=== PATIENT | female | born 1990 | race Caucasian/White ===

== ENCOUNTER 2017-01-04 21:29 | Emergency (ER) | payer OTHER ==
[~2017-01-04] VITALS: Ht 167.6 cm; Wt 158.8 kg
[~2017-01-04 21:29] MED LIST: BACTRIM DS 8001 TAB PO; BENADRYL 50MG C50 MG PO; CIPRO 500MG TA500 MG PO; CLARITIN10 MG PO; DARVOCET-N 1001 EACH PO; HYDROXYZINE50 MG PO; LORTAB 500 MG-71 TAB PO; MEDROL 4MG. DOSE4 MG PO; PERCOCET 325 MG1 TA3 PO; VICODIN 5/500 T1 TAB PO; VOLTAREN75 MG PO
--- NOTE | 2017-01-04 22:03 | Emergency Room Report ---
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 N Clinical Suspician of Infection? N Mental Status: 1 - Regular (Normal Baseline) Sepsis Risk:Low Sepsis Risk Have you (or family members/close friends) recently traveled outside the [place]? N If Yes, where/when: Have you had exposure to infectious disease within the past month? N TB? Other? Specify: Source patient, RN notes reviewed, family, old records Exam Limitations no limitations Comment pt is about 5 weeks and had spotting thursday and had u/s and did ok till tonight with vag bleeding and pain with spont miscarriage of what appeared decidual tissues - Cardiac Chest Pain Chest pain indicative of cardiac No Timing/Duration this evening Severity moderate ALLERGIES Coded Allergies: Penicillins (Mild, 01/04/17) amoxicillin (01/04/17) clavulanic acid (01/04/17) codeine (01/04/17) Home Medications Reported Medications Diphenhydramine Hcl (Benadryl 50MG Cap) 50 MG PO Q4-6H PRN History Medical History General CAD? No Angina: Yes TN: No Hypertension? Yes Hyperlipidemia? No CHF? No DVT? No PE? No COPD? No Asthma? No Anemia? No GERD? No Gastric ulcers? No GI Bleed? No Hernia? No Thyroid Problems? No CVA? No Seizures? No Diabetes? No Home FSBS? No Renal Insuffiency? No End Stage Renal Disease? No UTI? Yes Stones? No BPH? No GB Disease: No Nephritic Syndrome? No Asplenia? No Hepatitis? No Sickle Cell Disease? No Arthritis? No Migraines? No Cataracts? No Glaucoma? No MRSA? No HIV? No TB? No Anxiety? Yes Depression? No Cancer? 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 Respiratory denies cough, denies shortness of breath, denies wheezing Cardiovascular denies chest pain, denies palpitations, denies syncope Gastrointestinal denies abdominal pain, denies diarrhea, denies vomiting Genitourinary see HPI, abnormal vaginal bleeding. denies: frequency, hesitancy, hematuria. Musculoskeletal denies back pain, denies joint pain, denies neck pain Skin denies rash Psychiatric/Neurological denies headache, denies seizure Physical Exam Vital Signs Vital Signs Date Time Temp Pulse Resp B/P Pulse O2 O2 Flow FiO2 Ox Delivery Rate 01/04 2306 78 20 126/73 99 01/04 2204 98.8 71 18 122/67 99 01/04 2145 98.8 90 18 163/101 98 - WBC >12,000 or <4,000 or 10% bands? 2 or more SIRS Criteria Met? B/P:126/73 MAP:121 Creatinine >2.0? UA output<0.5ml/kg/hr for 2 hrs? Platelet count >100,000? Lactate >2.0mmol/1? INR >1.2 or PTT > than 60 sec? Evidence of Organ Dysfunction? Provider documented clinical suspician of infection? N Sepsis Criteria Count: 1 Sepsis Risk: Low Sepsis Risk General Appearance no apparent distress Eye Exam - bilateral eye PERRL, bilateral eye EOMI Ear, Nose, Throat normal ENT inspection Neck non-tender Respiratory Status No: respiratory distress. Cardiovascular regular rate/rhythm Peripheral Pulses Pulses normal Yes Gastrointestinal soft, no organomegaly, no pulsatile mass, no guarding, no rebound Extremities normal inspection Strength 4 Upper Ext (L), 4 Upper Ext (R), 4 Lower Ext (L), 4 Lower Ext (R) Pelvic normal external exam, oozing blood closed os Nurse present during exam? 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 No Results/Orders Laboratory Tests 01/04/175: Sodium 140, Potassium 4.3, Chloride 104, Carbon Dioxide 26, BUN 10, Creatinine 0.8, Estimated Creat Clear 269 H, Estimated GFR (MDRD) 87, Glucose 116 H, Calcium 9.0, Total Bilirubin 0.4, AST 13 L, ALT 24, Alkaline Phosphatase 98, Total Protein 7.1, Albumin 3.7, Globulin 3.4 H, Albumin/Globulin Ratio 1.1, Beta HCG, Quant 1196.2, WBC 18.2 H, RBC 4.47, Hgb 12.6, Hct 38.8, MCV 86.9, RDW 13.2, Plt Count 264, MPV 8.2, Gran % 79.4, Gran # 14.5 H, Total Counted 100, Lymphocytes % 15.8, Monocytes % 4.0, Eosinophils % 0.4, Basophils % 0.3, Neutrophils 80 H, Band Neutrophils 8, Lymphocytes (Manual) 11, Lymphocytes # 2.9, Monocytes (Manual) 1 L, Monocytes # 0.7, Eosinophils # 0.1, Basophils # 0.1, Platelet Estimate NORMAL, Rouleaux SL., PUBS MCHC 32.5, MCH 28.2, Miscellaneous Test POSITIVE Current Medication Orders Sig/Claus Start time Last Medication Dose Route Stop Time Status Admin Sodium Chloride 1,000 ML .STK-MED ONE 01/04 225 DC IV Sodium Chloride 10 ML PRN PRN 01/04 2215 AC IV 01/05 2203 Sodium Chloride 1,000 ML .Q1H1M 01/04 2215 DC 01/04 IV 01/04 2315 2258 Sodium Chloride 10 ML PRN PRN 01/04 221 AC IV 01/05 221 Orders Procedure Date/time Status DIFFERENTIAL-WBC 01/04 2235 Complete IV SALINE LOCK 01/04 2203 Active RH BLOOD TYPE 01/04 2203 Complete COMPLETE METABOLIC PANEL 01/04 2203 Complete CBC WITH AUTO DIFF 01/04 2203 Complete BETA-HCG, QUANT 01/04 2203 Complete URINALYSIS/COMPLETE 01/04 2131 Active URINE 01/04 2131 Active Departure Departure Time of Disposition 2353 Disposition DC Home or Self Care(routine) Clinical Impression Primary Impression: Miscarriage Condition STABLE Patient Instructions DI for Miscarriage Additional Instructions call ob in am and recheck if needed Discharge Counseling Counseled pt/family regarding diagnosis, test results, follow up needs ED Critical Care Critical Care No Comments discussed with dr mendieta at [id number]
--- OUTSIDE RECORDS SUMMARY | 2017-01-04 22:14 | External Medical Summary Rpt ---
Author Author PATRICIA Mendiola, DAVIDREJI [employer] Organization [employer] Address Unknown Phone Unavailable Results Choriogonadotropin.beta subunit ( test) [Presence] in Serum or Plasma Observa Value Referen Units Interpr Notes Date tion ce etation Range Choriog 930.8 No mIU/ML No NON-PRE Dec 31 onadotr informa informa [email or web address] opin.be tion in tion in [facility]ALES 7:41 AM ta source source subunit data data REFEREN CE (pregna RANGE = ncy 0 - 6 test) mIU/mLG [Presen estatio ce] in nal Age Serum or HCG Plasma RANGE0. 2 WEEKS 5 - 501-2 WEEKS 50 - 5002-3 WEEKS 100 - 5,0003- 4 WEEKS 500 - 10,0004 -5 WEEKS 1,000 - 50,0005 -6 WEEKS 10,000 - 100,000 6-8 WEEKS 15,000 - 200,000 2-3 MONTHS 10,000 - 100,000 Choriogonadotropin.beta subunit ( test) [Presence] in Serum or Plasma Observa Value Referen Units Interpr Notes Date tion ce etation Range Choriog 148.7 No mIU/ML No NON-PRE Dec 17 onadotr informa informa [email or web address] opin.be tion in tion in [facility] 4:01 PM ta source source subunit data data REFEREN CE (pregna RANGE = ncy 0 - 6 test) mIU/mLG [Presen estatio ce] in nal Age Serum or HCG Plasma RANGE0. 2 WEEKS 5 - 501-2 WEEKS 50 - 5002-3 WEEKS 100 - 5,0003- 4 WEEKS 500 - 10,0004 -5 WEEKS 1,000 - 50,0005 -6 WEEKS 10,000 - 100,000 6-8 WEEKS 15,000 - 200,000 2-3 MONTHS 10,000 - 100,000 CRP Observa Value Referen Units Interpr Notes Date tion ce etation Range CRP 0.0 - 0.9 MG/DL High No Dec 17 informati 2017 3:59 on in PM source data
--- OUTSIDE RECORDS SUMMARY | 2017-01-04 22:14 | External Medical Summary Rpt ---
Demographics Preferred Language German Marital Status Unknown Presybeterian Affiliation Unknown Race Unknown Ethnic Group Unknown Author Author PATRICIA Address Unknown Phone Immunization No patient found.
--- OUTSIDE RECORDS SUMMARY | 2017-01-04 22:14 | External Medical Summary Rpt ---
Author Author , PATRICIA GOMEZ Address Unknown Phone [email or web address] Purpose Continuity of Care Document - 12-17-2016 through 2016 Results Labs Lab Lab Date Result Refere Interp Status Commen Order Detail nces retati t Range on Choriogonadotropin.beta subunit ( test) [Presence] in Serum or Plasma (12-31-2016 07:41) Choriog 930.8 complet onadotr 017 ed opin.be 07:41 ta subunit (pregna ncy test) [Presen ce] in Serum or Plasma Choriogonadotropin.beta subunit ( test) [Presence] in Serum or Plasma (12-17-2016 16:01) Choriog 148.7 complet onadotr 017 ed opin.be 16:01 ta subunit (pregna ncy test) [Presen ce] in Serum or Plasma
--- OUTSIDE RECORDS SUMMARY | 2017-01-04 22:14 | External Medical Summary Rpt ---
Demographics Preferred Language Swedish Marital Status Unknown Orthodoxy Affiliation Unknown Race Unknown Ethnic Group Unknown Author Author PATRICIA Address Unknown Phone Immunization No patient found.
--- OUTSIDE RECORDS SUMMARY | 2017-01-04 22:14 | External Medical Summary Rpt ---
Author Author , PATRICIA GOMEZ Address Unknown Phone [email or web address] Purpose Continuity of Care Document - 12-17-2016 [...]
--- OUTSIDE RECORDS SUMMARY | 2017-01-04 22:14 | External Medical Summary Rpt ---
Author Author [employer] Organization [employer] Address Unknown Phone Unavailable Purpose Continuity of Care Document - through 2016
[2017-01-04 22:54] LABS: HEMOGLOBIN 12.6 g/dL (12.2-16.2); LYMPH # 2.9 K/mm3 (0.7-4.5); LYMPH % 15.8 % (10-50.0)
[2017-01-04 23:24] LABS: NEUTROPHILS 80 % (42-76)
[2017-01-05 00:19] VITALS: BP 125/75
== END 2017-01-05 00:20 | disposition home or self-care (01) ==
LOC: ER 21:29
PROVIDERS: Emergency Medicine
DX: O02.1 Missed abortion (principal)